=== PATIENT | female | born 1955 | race Hispanic/Latino ===

== ENCOUNTER 2016-07-01 08:15 | Day surgery (SDC) | payer OTHER ==
[~2016-07-01] VITALS: Ht 160 cm; Wt 76.0 kg
[~2016-07-01 08:15] MED LIST: 0.9% Sodium Chloride 1,000 ML IV SCH; ERYT1OIN7 AFFECT_EYE; FISH PO; HYDR-4003 PO; HYDR12.5 PO; HYDR28.311 RC; KEN1O TOP; MULT-64 PO; MUPI22OI2 TOP; Sodium Chloride LOK Flush 10 mL Syringe IV PRN; VIT1TABL83 PO; fentaNYL-PF 50 mCg/mL 2 mL Inj IVPUSH PRN
[2016-07-01 08:39] VITALS: BP 135/76; PULSE 75; RESP 16; O2SAT 100
[2016-07-01 09:51] VITALS: BP 131/71; PULSE 70; RESP 14; O2SAT 97
[2016-07-01 10:01] VITALS: BP 124/71; PULSE 81; RESP 14; O2SAT 92
[2016-07-01 10:10] VITALS: BP 136/83; PULSE 75; RESP 14; O2SAT 99
--- NOTE | 2016-07-01 10:43 | ENDO ---
[address] [address] ENDOSCOPY PROCEDURE PATIENT: BRICE PENA : 1955 MR#: [id number] ADMIT: 07/01/2016 JOB ID: [id number] DATE: 07/01/2016 PROCEDURE: Colonoscopy. INDICATIONS: Screening. The patient's ASA classification is 2. Mallampati score is 2. MEDICATIONS: 1. Versed 5 mg. 2. Fentanyl 100 mcg. INSTRUMENT USED: PCF H 180 AL. PREPARATION QUALITY: Was good. PROCEDURE DETAILS: After informed consent was obtained, the patient was brought into the GI suite, where she was placed on oxygen via nasal cannula and monitored with continuous pulse oximeter, telemetry and blood pressure monitoring. A time-out was performed. Then, she was placed in the left lateral decubitus position and medications were administered for sedation. A digital rectal exam was performed and was unremarkable. The colonoscope was then inserted into the rectum and advanced under direct visualization to the cecum, which was identified by the presence of the ileocecal valve and appendiceal orifice. Once the cecum was reached, the colonoscope was withdrawn back into the rectum as the mucosa and lumen were examined. In the rectum, retroflexion was performed. Following retroflexion, remaining air in the rectum was suctioned and the procedure was completed. FINDINGS: Normal examination from rectum to cecum. IMPRESSION: Normal colonoscopy. RECOMMENDATIONS: Repeat colonoscopy in 10 years, sooner if symptoms should dictate. COMPLICATIONS: None. ESTIMATED BLOOD LOSS: 0.
[2016-07-19] MEDS ORDERED: METR45GE VAGINAL (13:06)
[2016-07-19] MEDS ORDERED: OMEG1CAP56 PO (13:06)
[2016-07-19] MEDS ORDERED: MULT-1018 PO (13:06)
[2016-07-19] MEDS ORDERED: HYDR28.311 PR (13:06)
== END 2016-07-01 23:59 | disposition home or self-care (01) ==
LOC: END 08:15
PROVIDERS: ATTEND Internal Medicine Gastroenterology
DX: Z12.11 Encounter for screening for malignant neoplasm of colon (principal); I10 Essential (primary) hypertension; E66.9 Obesity, unspecified; Z68.30 Body mass index [BMI] 30.0-30.9, adult
CPT/HCPCS: G0121; G0500; J2250; J7030

== ENCOUNTER 2016-07-21 10:30 | Day surgery (SDC) | payer OTHER ==
[~2016-07-21] VITALS: Ht 160 cm; Wt 77.6 kg
[2016-07-21] VITALS (9 sets, daily range): BP systolic 102–134; BP diastolic 35–64; PULSE 62–100; RESP 14–20; O2SAT 97–100
--- NOTE | 2016-07-21 08:49 | PCM.HPANE ---
Patient Data Date of Service: Jul 21, 2016 Surgeon Admitting Provider: Attending Provider:Naman White MD Primary Care Physician:July Ovalles MD Other Provider:Jamila Gutierrez Anesthesia Reason for Visit Left Shoulder Lipoma Ht/WT & BMI Height (Feet): 5 Height (Inches): 3 Weight (Kilograms): 77.564 Body Mass Index 30.00 Allergies Coded Allergies: Sulfa (Sulfonamide Antibiotics) (Verified Allergy, Severe, RASH, 07/19/16) latex (Verified Allergy, Unknown, UNKNOWN, 07/19/16) Past Anesthesia History Anesthesia History: Denies:: Anesthesia Reactions, Fam Anesthesia Reaction, Fam Malignant Hypertherm, Malignant Hyperthermia Diabetes History Hx Diabetes?: No MRSA MRSA: No Medications Hypertension Medication: Yes (HCTZ) Reported Medications Hydrocortisone (Proctosol-Hc)28.35 Gm Cream.appl1 Applic RI 2X/DAY 07/19/16 [place]-3 Fatty Acids/Fish Oil ([place] 3 1,000 mg Softgel)1 Each Capsule1 Each PO DAILY 07/19/16 Multivitamin (Multi Vitamin Daily)1 Each Tablet1 Each PO DAILY 30 Days Ref 0 07/19/16 Metronidazole (Metronidazole Gel)1 Applic/0.25 Gm Gel1 Applic VAGINAL DAILY #45 GM Ref 0 X 5 DAYS 07/19/16 Vit B Comp/C/FA/Iron/Vit E (Vitamin B Complex Tablet)1 Each Tablet1 Each PO DAILY 06/30/16 Hydrochlorothiazide 12.5 Mg [place]19.5 Mg PO DAILY 30 Days Ref 0 06/30/16 History History of ENT Problems?: No Hx of Heart Problems?: Yes Cardiovascular History: Positive for:: Hypertension (INTERMITTANT HTN, HYPERLIPIDEMIA) Denies:: AICD Heart Murmur (MPS 08/2005 EF 72%) Pacemaker Valvular Heart Disease Hx of Respiratory Problem?: No Respiratory History: Denies:: Use of C-PAP Machine Hx Neurologic Problems?: Yes Neurological History: Positive for:: Headaches (ACUPUNCTURE TX) Denies:: CVA Hx of GI Problems?: Yes Gastrointestinal History: Positive for:: Gall Bladder Disease (S/P WYATT) Gastroesphageal Reflux (HX H. PYLORI) Hx of Problems?: No Female Hx: Denies:: Currently (S/P C/S X4) Endometriosis Pelvic Inflammatory Problems with Breasts? Skin History: Positive for:: History Skin Disorders? (ROSACEA) Denies:: Pressure Ulcers Hx Musculoskeletal Problems?: Yes Hx of Psycho/Social Problems?: No Hx Surgeries?: Yes (C/S X4,WYATT,EXC BACK LIPOMA) Hx Any Other Health Problems?: Yes Other History: Denies:: Cancer Endocrine Disease Hospitalization Thyroid Disease History Blood Transfusions: Denies:: Blood Transfuse Reaction Blood Transfusions Hx Diabetes: No Hx Alcohol Use: NoHx Substance Use: No Smoking Status: Never Smoker Have You Smoked inLast 12 mo: No Stop/Bang Treated for Sleep Apnea?: No Do You Have a CPAP Machine?: No S-Snoring: Do You Snore Loudly: No T-Tired: feel tired, fatigued: No O-Obsered: Observed not breath: No P-Blood Pressure: treated: Yes B- Body Mass Index > 35 kg/m2: No A- Age over 50: Yes N- Neck Large Circumference: No G- Gender Male: No JHON Total Score: 2 JHON Risk Assessment: Low Risk, <3 Yes Risk Assessment Category Category 1A: Patient has history of documented sleep apnea, and HAS NOT received any narcotic, sedative or anesthesia administration during this stay. Category 1B: Patient has history of documented sleep apnea, and HAS received any narcotic , sedative or anesthesia administration during this stay Category 2: Patient has SUSPECTED Obstructive Sleep Apnea, and HAS received any narcotic , sedative or anesthesia administration during this stay. Category 3: Patient has SUSPECTED Obstructive Sleep Apnea and HAS NOT received narcotic, sedative or anesthesia administration during this stay. Category 4: Outpatient in Procedural Areas with known sleep apnea or who screen positive for High Risk via the STOP/BANG questionnaire. Exam Exam General Appearance: Alert, Oriented X3, Cooperative, No Acute Distress HEENT/AIRWAY: MP 2 Lungs: Clear to Auscultation, Normal Air Movement Heart: Normal S1, Normal S2 Plan Impression Patient chart reviewed, patient interviewed and anesthestic plan with risks, benefits, and alternatives discussed, and informed consent obtained. ASA Physical Status: ASA2 Mod Systemic Disease Anesthetic Plan: GA Bene/Risks/Altern/Consents: Yes HP Complete Prior to Induction: Yes Clement Dobson DO Jul 21, 2016 08:49
[~2016-07-21 10:30] MED LIST changes: -0.9% Sodium Chloride 1,000 ML IV SCH; +Atropine 0.4 mg/mL Inj IVPUSH PRN; +Dexamethasone 4 mg/mL Inj IVPUSH PRN; +EPHEDrine Sulfate 50 mg/mL Inj IVPUSH PRN; -ERYT1OIN7 AFFECT_EYE; -FISH PO; -HYDR-4003 PO; +HYDR28.311 PR; -HYDR28.311 RC; +HYDROmorphone 1 mg/mL Inj IVPUSH PRN; -KEN1O TOP; +Labetalol 5 mg/mL 4 mL Inj IV PRN; +Lactated Ringer's 1,000 ML IV SCH; +Lactated Ringer's 500 ML IV PRN; +METR45GE VAGINAL; +MULT-1018 PO; -MULT-64 PO; -MUPI22OI2 TOP; +MetoCLOpramide 5 mg/mL 2 mL Inj IVPUSH PRN; +OMEG1CAP56 PO; +Ondansetron 2 mg/mL 2 mL Inj IVPUSH PRN; +Phenylephrine 10,000 mCg/mL Inj IVPUSH PRN; -Sodium Chloride LOK Flush 10 mL Syringe IV PRN
[2016-07-21] MEDS ORDERED: fentaNYL-PF 50 mCg/mL 2 mL Inj ONE (10:31)
[2016-07-21] MEDS ORDERED: Dexamethasone 4 mg/mL Inj ONE (10:31)
[2016-07-21] MEDS ORDERED: Propofol 10,000 mCg/mL 20 mL Inj ONE (10:31)
[2016-07-21] MEDS ORDERED: Ondansetron 2 mg/mL 2 mL Inj ONE (10:31)
[2016-07-21] MEDS ORDERED: Lactated Ringer's 1,000 ML IV ONE (11:09)
[2016-07-21] MEDS ORDERED: Bupivacaine-MPF 0.5% W/EPI 30 mL Inj INFILTRATE ONE (12:38)
--- NOTE | 2016-07-21 13:02 | PCM.ANEP1 ---
Post Anesthesia Phase 1 PACU Phase 1 Assessment Date of Service: Jul 21, 2016 Vital Signs Vital Signs Date Time Temp Pulse Resp B/P Pulse Ox O2 Delivery O2 Flow Rate FiO2 07/21/16 11:09 36.4 62 14 128/60 99 Room Air Anesthetic Administered: GA Level of Alertness: Awake, talking BAUTISTA's with Equal Strength: Yes Pain: No Airway Device: Oralpharangeal Airway Oxygen Delivery: Simple Mask (6L) Lungs: Clear to Auscultation, Normal Air Movement Dermatome Level: Full Sensation Clement Dobson DO Jul 21, 2016 13:02
[2016-07-21] MEDS ORDERED: HYDROcodone-APAP 5-325 mg Tablet PO PRN (13:05)
--- NOTE | 2016-07-21 13:27 | PCM.ANEP2 ---
Post Anesthesia Evaluation ASA/CMS Post Anesthesia Date of Service: Jul 21, 2016 VS in Patient's Normal Range?: Yes Resp Stable; Airway Patent?: Yes CV Function & Hydration Stable: Yes Mental Status Recovered?: Yes Pain control Satisfactory?: Yes N/V Control Satisfactory?: Yes Clement Dobson DO Jul 21, 2016 13:26
--- NOTE | 2016-07-21 14:56 | OP ---
[address] [address] OPERATIVE REPORT PATIENT: BRICE PENA : 1955 MR#: [id number] ADMIT: 07/21/2016 JOB ID: [id number] DATE OF SURGERY: 07/21/2016 ANESTHESIA: General. PREOPERATIVE DIAGNOSIS(ES): Left shoulder lipoma. POSTOPERATIVE DIAGNOSIS(ES): Left shoulder lipoma. OPERATION: Excision of left shoulder lipoma. SURGEON: Naman White MD. ASSISTANTS: Izaiah Delacruz PA-C (the child welfare assistant was required for the safe and timely completion of the case) and TERRANCE Thomas. COMPLICATIONS: None. ESTIMATED BLOOD LOSS: Minimal. CONDITION: Satisfactory. SPECIMEN: Left shoulder lipoma. FINDINGS: There was a left shoulder lipoma that measured a total of 7 x 5 x 1 cm which was excised. It was under the subcutaneous tissue and extending down to the bone. INDICATIONS: The patient is a 61-year-old female who has had a left shoulder lump for about eight years. It has been stable in size but she has grown increasingly concerned about it and therefore was referred for removal. OPERATIVE TECHNIQUE: The patient was taken to the operating room and placed in supine position. General anesthesia was administered. She was then placed in a semi-lateral position with the right side down. The left shoulder was prepped and draped in a standard surgical fashion, and a procedure pause performed. A transverse incision was made over the palpable lipoma. Dissection was carried down through the skin. The lipoma was adherent to the undersurface of the skin and was circumferentially dissected free. It was in two components. One was lobular and one was dense fat. The first one was removed but then it became apparent that the lipoma also consisted of the more dense fat and so, this was circumferentially dissected free and excised. The skin was closed using 4-0 Monocryl. Local anesthetic had been injected at the beginning of the case. Dressing was applied, and the case was concluded.
--- NOTE | 2016-07-25 11:17 | PATH ---
SURGICAL PATHOLOGY Attending Physician:Naman White MD CASE STATUS: Signed Out PATIENT NAME: BRICE PENA PID: [id number] : 1955 DATE COLLECTED:07/21/2016 22:45 SPECIMEN: Soft Tissue, Lipoma CLINICAL HISTORY: 1). LEFT SHOULDER LIPOMA FINAL DIAGNOSIS: 1.SPECIMEN DESIGNATED LEFT SHOULDER LIPOMA: LIPOMA, NEGATIVE FOR ATYPIA. ICD10 CODE D17.21 GROSS DESCRIPTION: The specimen is received in one formalin filled container labeled with the patient's name, sublabeled "left shoulder lipoma" and consists of 2 yellow-acevedo portions of soft tissue which aggregate to 6.0 x 4.0 x 2.0 CM. Inked blue. 2 career services representative sections are submitted in one cassette. 07/21/2016 [facility] MICRO DESCRIPTION: See diagnosis. ICD-9 CODES: CPT CODES: 1: 59496 Electronically Signed Out Jae Webb MD [facility] Pathology [facility] [address], [place] [address] Technical component performed at [facility], [facility] [address], [place], [address]
== END 2016-07-21 23:59 | disposition home or self-care (01) ==
LOC: SAS 10:30
PROVIDERS: ATTEND General Practice
DX: D17.22 Benign lipomatous neoplasm of skin and subcutaneous tissue of left arm (principal); I10 Essential (primary) hypertension; E78.00 Pure hypercholesterolemia, unspecified; E78.5 Hyperlipidemia, unspecified; K21.9 Gastro-esophageal reflux disease without esophagitis; E66.9 Obesity, unspecified
CPT/HCPCS: 23073; J1100; J2250; J2405; J3010; J7120